=== PATIENT | female | born 1965 | race Caucasian/White ===

== ENCOUNTER → 2016-04-20 | Outpatient (CLI) | payer BC ==
[~2016-04-20] MED LIST: CEFD300C PO
[2016-04-20 13:52] VITALS: BP 118/74
--- NOTE | 2016-04-20 13:52 | Urgent Care T Sheet Gen (E) ---
Intake General Temperature (Fahrenheit): 98.8 Pulse: 68 Blood Pressure Systolic: 118 Blood Pressure Diastolic: 74 Respirations: 18 SPO2: 100 Description of Symptoms patient presents with sore throat since this Am. No fever. Noticed some white spots on the R tonsil. Denies any drainage or nasal congestion. No meds to treat her symptoms. History of Present Illness Allergies: Coded Allergies: Sulfa (Sulfonamide Antibiotics) (Unverified Allergy, Unknown, 03/12/16) Respiratory Constitutional Symptoms: No syptoms reported EENTM: Throat pain Respiratory: No symptoms reported Cardiovascular: No symptoms reported All Other Systems Reviewed Remaining Systems: All other systems reviewed with negative findings Physical Exam Physical Exam General Appearance: WD/WN No apparent distress Eyes, Ears, Nose, Throat Ex: TMs normal Pharyngeal erythema Tonsillar exudate Other (nose is clear) Neck Exam: Supple Lymphadenopathy (R anterior cervical ) Respiratory Exam: Lungs clear Normal breath sounds Cardiovascular Exam: Regular rate, rhythm Progress/Orders Lab Results Labs Results: Rapid Strep (negative) Departure Urgent Care Impression Impression: Primary Impression: Viral pharyngitis Departure Disposition: 01 HOME OR SELF-CARE Condition: Stable Referrals: Stevenson Domínguez MD (PCP) Additional Instructions: Rapid strep was negative. I have sent it for culture and will call with results. Will treat symptomatically. Rest. Fluids. Ibuprofen as needed Return if no better Patient understands DC instructions. All questions were answered. End of report . LIZETT ALTMAN Apr 20, 2016 13:52
--- NOTE | 2016-04-21 13:36 | Urgent Care Follow Up Note (E) ---
Urgent Care Follow Up Note Patient's rapid strep was negative yesterday however her throat culture came back positive for Group C strep. Called patient and have sent a prescription to [facility] Fluids Scripts Cefdinir 300 Mg [id number] Mg PO BID #[id number] CAP Prov:LIZETT ALTMAN 04/21/16 LIZETT ALTMAN Apr 21, 2016 13:36
== END ==
LOC: MHUC 13:26
PROVIDERS: ATTEND Physician Assistant
DX: J02.8 Acute pharyngitis due to other specified organisms (principal)
CPT/HCPCS: 87880; 99213